=== PATIENT | female | born 1970 | race Two or more races ===

== ENCOUNTER 2017-09-09 20:53 | Emergency (ER) | payer SELFPAY ==
[2017-09-09] MEDS ORDERED: DEXAMETHASONE SOD PHOS INJ 10 MG/1 ML VIAL IV ONE (21:52)
[2017-09-09] MEDS ORDERED: MORPHINE SULFATE 10 MG/ML INJ IV ONE (21:52)
[2017-09-09] MEDS ORDERED: PROCHLORPERAZINE EDISYLATE INJ 10 MG/2 ML VIAL IM ONE (21:52)
--- NOTE | 2017-09-09 22:40 | ER Document Report ---
ED General - General Chief Complaint: Back Pain Stated Complaint: BACK PAIN Time Seen by Provider: 09/09/17 21:40 TRAVEL OUTSIDE OF THE [place] IN LAST 30 DAYS: No - HPI Notes: 47-year-old female who presents with back pain and leg pain. Patient indicates over the last day she has had some "twinges" in her lower back and leg. Today she had rapid onset of pain in her left lower back region that radiates down around her left buttocks, left anterolateral thigh and down her leg. Some intermittent tingling and sometimes numbness. No true weakness but pain is caused her to have some difficulty walking. Severe pain. 10 out of 10. No bowel or bladder dysfunction, no direct trauma. No unplanned weight loss, no fevers, no other constitutional symptoms. She has had similar symptoms in the past over the last year but not this bad. No history of malignancy. No other modifying factors, no other associated symptoms, no other provocative or palliative factors. - Related Data Allergies/Adverse Reactions: naproxen [Naproxen] Allergy (Verified 09/09/17 20:53) swelling Sulfa (Sulfonamide Antibiotics) Allergy (Verified 09/09/17 20:53) swelling Past Medical History - Social History Smoking Status: Current Some Day Smoker Chew tobacco use (# tins/day): No Frequency of alcohol use: Occasional Drug Abuse: None Family History: Reviewed & Not Pertinent Patient has suicidal ideation: No Patient has homicidal ideation: No - Past Medical History Cardiac Medical History: Reports: Hx Hypercholesterolemia Pulmonary Medical History: Reports: Hx Asthma Denies: Hx Tuberculosis Renal/ Medical History: Denies: Hx Peritoneal Dialysis GI Medical History: Reports: Hx Gastroesophageal Reflux Disease Psychiatric Medical History: Reports: Hx Depression - Immunizations Hx Diphtheria, Pertussis, Tetanus Vaccination: No Review of Systems - Review of Systems Notes: As in the history of present illness otherwise negative Physical Exam - Vital signs Vitals: Temp Pulse Resp BP Pulse Ox 98.5 F 94 17 106/67 95 09/09/17 20:57 09/09/17 20:57 09/09/17 20:57 09/09/17 20:57 09/09/17 20:57 - Notes Notes: General: Well developed . HEENT: Normocephalic, atraumatic. Pupils equal round reactive to light. No JVD. Chest: No trauma. Respiratory: Good air exchange, normal excursion. Cardiac: Regular rhythm. No murmurs or gallops. Abdomen: Soft, benign. Nondistended. Nontender. Back: No asymmetry or gross abnormality. Moderate left paralumbar spasm and tenderness, no spinal percussion tenderness. Motor: Grossly normal power and tone. Range of motion slightly limited by pain but symmetric. Neurologic: Alert, nonfocal. Sensation intact light touch and pain bilaterally. DTRs are 2+ and symmetric at the knees, 1+ at the ankles. Vascular: Well perfused. Normal peripheral pulses. Skin: No petechiae or purpura. Course - Re-evaluation Re-evalutation: 09/09/17 22:39 47-year-old female in the after mentioned symptoms. Of note, she came in via EMS and received IV Toradol via EMS. This point, her symptom complex strongly suggest some type of lumbar radiculopathy. She otherwise has no high-risk features, no IV drug abuse, no constitutional symptoms and no fever. At this point, patient is neurologically intact. She is going to undergo plain film radiography of the hips and pelvis and lumbar spine to rule out acute or occult bony abnormality. Will treat with Decadron, Compazine for nausea she is having in pain modulation,'s small dose of opiates, reassess. 09/09/17 23:00 Plain films of the lumbar spine and hip are unremarkable. Patient is reevaluated, feels much better. Blood sugars 146, she is cautioned to follow-up closely as an outpatient to formally be tested for diabetes. At this point, the patient is neurologically intact and I believe safe for discharge home. She may benefit from close follow-up with MR imaging. She is given a prescription for Flexeril, will continue to take ibuprofen. Likely has lumbar radiculopathy. - Vital Signs Vital signs: Temp Pulse Resp BP Pulse Ox 98.5 F 94 17 106/67 95 09/09/17 20:57 09/09/17 20:57 09/09/17 20:57 09/09/17 20:57 09/09/17 20:57 - Laboratory Laboratory results interpreted by me: 09/09/17 22:01 POC Glucose 146 H Discharge - Discharge Clinical Impression: Lumbar radiculopathy, acute Condition: Good Disposition: HOME, SELF-CARE Instructions: Low Back Pain ([facility]), Radiculopathy ([facility]) Prescriptions: Cyclobenzaprine HCl [Flexeril 10 mg Tablet] 10 mg PO TIDP PRN #15 tab PRN Reason: Cyclobenzaprine HCl [Flexeril 10 mg Tablet] 10 mg PO TIDP PRN #15 tab PRN Reason:
--- NOTE | 2017-09-09 22:47 | RADIOLOGY REPORT (SQ) ---
EXAM DESCRIPTION: HIP LEFT AP/LATERAL COMPLETED DATE/TIME: 09/09/2017 10:32 pm REASON FOR STUDY: Severe pain COMPARISON: None. NUMBER OF VIEWS: Two views. TECHNIQUE: AP pelvis and additional frog-leg view of the left hip. LIMITATIONS: None. FINDINGS: MINERALIZATION: Normal. LEFT HIP: No fracture or dislocation. No worrisome bone lesions. RIGHT HIP: No fracture or dislocation. No worrisome bone lesions. PUBIS AND ISCHIUM: No fracture. PELVIS: No fracture. SACRUM: No fracture or dislocation. No worrisome bone lesions. LOWER LUMBAR SPINE: No fracture or dislocation. No worrisome bone lesions. No significant disc disea se. SOFT TISSUES: No findings. OTHER: No other significant finding. IMPRESSION: NEGATIVE STUDY OF THE LEFT HIP AND PELVIS. NO RADIOGRAPHIC EVIDENCE OF ACUTE INJURY. TECHNICAL DOCUMENTATION: JOB ID: [id number] [email or web address]- All Rights Reserved Reading location - IP/workstation name: [email or web address]
--- NOTE | 2017-09-09 22:47 | RADIOLOGY REPORT (SQ) ---
EXAM DESCRIPTION: L SPINE 2 VIEWS COMPLETED DATE/TIME: 09/09/2017 10:32 pm REASON FOR STUDY: Severe pain COMPARISON: None. NUMBER OF VIEWS: Two views. TECHNIQUE: AP and lateral radiographic images acquired of the lumbar spine. LIMITATIONS: None. FINDINGS: MINERALIZATION: Normal. SEGMENTATION: Normal. No transitional anatomy. ALIGNMENT: Normal. VERTEBRAE: Maintained height. No fracture or worrisome bone lesion. DISCS: Mild loss of L4/5 intervertebral disc height. No significant osteophytes or end plate irregul arity. Mild multilevel spondylotic change POSTERIOR ELEMENTS: Pedicles and facets are intact. No pars defect or posterior arch defects. HARDWARE: None in the spine. PARASPINAL SOFT TISSUES: Normal. PELVIS: Intact as visualized. No fractures or worrisome bone lesions. SI joints intact. OTHER: No other significant finding. IMPRESSION: No evidence of acute osseous injury. Mild spondylotic change. TECHNICAL DOCUMENTATION: JOB ID: [id number] [employer]- All Rights Reserved Reading location - IP/workstation name: [email or web address]
[2017-09-09 23:37] VITALS: BP 110/64
[2017-09-09] MEDS ORDERED: FAMOTIDINE 20 MG TABLET PO ONE (23:41)
== END 2017-09-09 23:48 | disposition home or self-care (01) ==
LOC: ER 20:53
DX: M54.16 Radiculopathy, lumbar region (principal); R11.0 Nausea; R20.2 Paresthesia of skin; R20.0 Anesthesia of skin; J45.909 Unspecified asthma, uncomplicated; R25.2 Cramp and spasm; F17.200 Nicotine dependence, unspecified, uncomplicated; Z88.2 Allergy status to sulfonamides; Z88.0 Allergy status to penicillin
CPT/HCPCS: 99284; 96372; 96374; 96375; 82962; 73502; 72100; J2270; J0780; J1100